=== PATIENT | male | born 1955 | race Caucasian/White ===

== ENCOUNTER → 2020-09-17 | Day surgery (SDC) | payer OTHER ==
[2020-09-16 11:55] VITALS: BMI 33.3
[~2020-09-17] MED LIST: LACTATED RINGERS 1,000 ML IV SCH; MIDAZOLAM 2 MG/2 ML VIAL ONE; PROPOFOL 10 MG/ML 20 ML VIAL IV ONE; fentaNYL (PF) 50 MCG/ML 2 ML AMP ONE
[2020-09-17 09:29] VITALS: TEMP 97.9
--- NOTE | 2020-09-17 09:55 | P.GSHP ---
History of Present Illness H&P Date: 09/17/20 Chief Complaint: Screening colonoscopy This a 64-year-old male been sick for screening colonoscopy. Patient denies any significant GI complaints. Past Medical History Past Medical History: Hyperlipidemia, Hypertension Additional Past Medical History / Comment(s): + COLOGARD TEST History of Any Multi-Drug Resistant Organisms: None Reported Past Surgical History: Adenoidectomy, Hernia Repair, Tonsillectomy Past Anesthesia/Blood Transfusion Reactions: No Reported Reaction Smoking Status: Never smoker - Past Family History Mother Family Medical History: Cancer Medications and Allergies Home Medications Medication Instructions Recorded Confirmed Type Atorvastatin [Lipitor] 20 mg PO DAILY 09/16/20 09/17/20 History Enalapril [Vasotec] 20 mg PO DAILY 09/16/20 09/16/20 History amLODIPine [Norvasc] 10 mg PO DAILY 09/16/20 09/16/20 History Allergies Allergy/AdvReac Type Severity Reaction Status Date / Time No Known Allergies Allergy Verified 09/17/20 09:28 Surgical - Exam Vital Signs Temp Pulse Resp BP Pulse Ox 97.9 F 75 17 145/83 98 09/17/20 09:28 09/17/20 09:28 09/17/20 09:28 09/17/20 09:28 09/17/20 09:28 - General well developed, well nourished, no distress - Eyes PERRL - ENT normal pinna - Neck no masses, no bruits - Respiratory normal expansion - Cardiovascular Rhythm: regular - Abdomen Abdomen: soft, non tender Assessment and Plan Assessment: We'll perform screening colonoscopy.
--- NOTE | 2020-09-17 10:05 | P.OP ---
Date of Procedure: 09/17/20 Preoperative Diagnosis: Screening colonoscopy Postoperative Diagnosis: Normal colon Procedure(s) Performed: Colonoscopy Anesthesia: MAC Surgeon: Eber Domínguez Pathology: none sent Condition: stable Disposition: PACU Description of Procedure: PROCEDURE: The patient was placed on the endoscopy table in the lateral position. Digital rectal examination was performed which revealed no abnormalities. The prostate was symmetrical without nodules. Flexible colonoscope was then placed in the patient's anus and passed throughout the entire colon. The ileocecal valve was visualized. The cecum, ascending, transverse, descending and sigmoid colon were normal. The rectum was normal as well. There were no masses, polyps or diverticula noted in the entire colon. SUMMARY OF FINDINGS: Normal colonoscopy.
[2020-09-17 10:09] VITALS: PULSE 73; RESP 16
[2020-09-17 11:02] VITALS: BP 101/50
== END | disposition home or self-care (01) ==
LOC: ORWHC2ENDO 08:33
PROVIDERS: ATTEND Surgery
DX: Z12.11 Encounter for screening for malignant neoplasm of colon (principal); E78.5 Hyperlipidemia, unspecified; I10 Essential (primary) hypertension; Z90.89 Acquired absence of other organs; Z98.890 Other specified postprocedural states; Z87.19 Personal history of other diseases of the digestive system; Z79.899 Other long term (current) drug therapy; Z80.9 Family history of malignant neoplasm, unspecified
CPT/HCPCS: J2250; J3010; J2704; G0121; 45378

== ENCOUNTER 2020-11-30 14:28 | Emergency (ER) | payer OTHER ==
[2020-11-30 14:43] VITALS: BP 112/69; PULSE 114; RESP 18; TEMP 98.3
[2020-11-30] MEDS ORDERED: BACITRACIN OINT 1 EACH PACKET TOPICAL ONE (15:26)
--- NOTE | 2020-11-30 15:31 | ED ---
Fall HPI - General Chief Complaint: Fall Stated Complaint: Fall, fac lac Time Seen by Provider: 11/30/20 14:56 Source: patient Mode of arrival: wheelchair - History of Present Illness Initial Comments: Patient is a 65-year-old male presenting to the emergency department after he fell at work today. He states about an hour prior to arrival he tripped on a machine at work and fell forward hitting his chin on the ground. Patient denies loss of consciousness, he denies having headache, no blurry vision, no nausea or vomiting. He denies pain anywhere except for his chin. He does have a small cut to his bottom lip. He denies being on blood thinners. He has no further complaints at this time. - Related Data Home Medications Medication Instructions Recorded Confirmed Atorvastatin [Lipitor] 20 mg PO DAILY 09/16/20 09/17/20 Enalapril [Vasotec] 20 mg PO DAILY 09/16/20 09/16/20 amLODIPine [Norvasc] 10 mg PO DAILY 09/16/20 09/16/20 Allergies Allergy/AdvReac Type Severity Reaction Status Date / Time No Known Allergies Allergy Verified 11/30/20 14:39 Review of Systems ROS Statement: Those systems with pertinent positive or pertinent negative responses have been documented in the HPI. ROS Other: All systems not noted in ROS Statement are negative. Past Medical History Past Medical History: Hyperlipidemia, Hypertension Additional Past Medical History / Comment(s): + COLOGARD TEST History of Any Multi-Drug Resistant Organisms: None Reported Past Surgical History: Adenoidectomy, Hernia Repair, Tonsillectomy Past Anesthesia/Blood Transfusion Reactions: No Reported Reaction Past Psychological History: No Psychological Hx Reported Smoking Status: Never smoker Past Alcohol Use History: None Reported Past Drug Use History: None Reported - Past Family History Mother Family Medical History: Cancer General Exam - General Exam Comments Initial Comments: GENERAL: Patient is well-developed and well-nourished. Patient is nontoxic and in no acute distress. HEAD: Atraumatic, normocephalic. No hematoma, no signs of basilar skull fracture. EYES: Pupils equal round and reactive to light, extraocular movements intact, sclera anicteric, conjunctiva are normal. Eyelids were unremarkable. ENT: TMs normal, nares patent, oropharynx clear without exudates. Moist mucous membranes. He has full range of motion of his jaw, no pain with motion. NECK: Normal range of motion, supple without lymphadenopathy or JVD. LUNGS: Unlabored respirations. Breath sounds clear to auscultation bilaterally and equal. No wheezes rales or rhonchi. HEART: Regular rate and rhythm without murmurs, rubs or gallops. ABDOMEN: Soft, nontender, normoactive bowel sounds. No guarding, no rebound. No masses appreciated. : Deferred MUSCULOSKELETAL: Normal extremities with adequate strength and normal range of motion, no pitting or edema. No clubbing or cyanosis. NEUROLOGICAL: Patient is alert and oriented x 3. Motor and sensory are also intact. Cranial nerves II through XII grossly intact. Symmetrical smile. Normal speech, normal gait. PSYCH: Normal mood, normal affect. SKIN: Warm, Dry, normal turgor, no rashes. Patient has mild superficial lacerations to his bottom lip from the teeth, no through and through. There is no active bleeding at this time. Limitations: no limitations Course Vital Signs 11/30/20 14:39 Temperature 98.3 F Pulse Rate 114 H Respiratory 18 Rate Blood Pressure 112/69 O2 Sat by Pulse 95 Oximetry Medical Decision Making - Medical Decision Making Patient is a 65-year-old male here after he fell at work about an hour prior to arrival hitting his chin on the ground causing superficial lacerations to his bottom lip. There is no active bleeding. Patient did not lose consciousness, his exam is otherwise unremarkable. No other complaints at this time. He is not on blood thinners. I discussed with patient that his lip does not require any sutures or glue. He can use topical antibiotic twice a day for the next few days. He is stable for discharge. He can follow up with his regular doctor. He is in agreement with this plan of care. Disposition Clinical Impression: Fall, Abrasion of skin of lip, Contusion, lip Disposition: HOME SELF-CARE Condition: Stable Instructions (If sedation given, give patient instructions): Abrasion (ED) Additional Instructions: Please return to the Emergency Department if symptoms worsen or any other concerns. Apply topical antibiotic twice daily for the next week. Apply ice to the area as well for any swelling or pain. Follow-up with your regular doctor. Is patient prescribed a controlled substance at d/c from ED?: No Referrals: Rena Liz DO [Primary Care Provider] - 1-2 days
== END 2020-11-30 15:44 | disposition home or self-care (01) ==
LOC: EC 14:28
DX: S01.511A Laceration without foreign body of lip, initial encounter (principal); E78.5 Hyperlipidemia, unspecified; I10 Essential (primary) hypertension; Z79.899 Other long term (current) drug therapy; W01.0XXA Fall on same level from slipping, tripping and stumbling without subsequent striking against object, initial encounter; Y99.0 Civilian activity done for income or pay; Y92.69 Other specified industrial and construction area as the place of occurrence of the external cause
CPT/HCPCS: 99283

== ENCOUNTER → 2023-03-03 | Outpatient (CLI) | payer OTHER ==
--- NOTE | 2023-03-03 12:32 | MR ---
EXAMINATION TYPE: MR lumbar spine wo con DATE OF EXAM: 03/03/2023 COMPARISON: NONE HISTORY: Hyperreflexia of lower extremities, pain per order. TECHNIQUE: Multiplanar, multisequence imaging of the lumbar spine is performed without IV contrast. FINDINGS: Sagittal images of the lumbar spine show vertebral body heights to appear satisfactory. The re is grade 1 retrolisthesis L4 on L5 and L5 on S1. There is multilevel disc desiccation. There is mo derate to advanced disc space narrowing with vacuum disc phenomenon at L4-L5 and L5-S1 levels. The co nus medullaris is normal in position and signal ending at mid L1 level. The bone marrow signal inten sity is within normal limits. Axial images show T12-L1 and L1-L2 levels to appear within normal limits. Axial images at L2-L3 level shows mild broad-based disc bulge minimally effacing anterior thecal sac. Patent bilateral neural foramina. Axial images L3-L4 level show mild broad disc bulge with tiny central disc protrusion mildly effacing the anterior thecal sac and mild to moderate facet arthropathy and ligamentum flavum hypertrophy. Mi ld bilateral neural foraminal narrowing is seen. Axial images at L4-L5 levels with spondylolisthesis with moderate broad disc bulging and small left p aracentral disc extrusion extending superiorly sagittal image 9. There is effacement of the anterior and posterior lateral thecal sac on axial image 10. There is moderate right and moderate to severe le ft-sided neural foraminal narrowing with likely some left L4 effacement sagittal image 6. Axial images at L5-S1 level show mild/moderate facet arthropathy bilaterally. There is spondylolisthe sis with broad-based posterior disc protrusion. There is mild right and more moderate to severe right -sided neural foraminal narrowing due to foraminal and lateral disc protrusion component encroaching along inferior margin of the right L5 nerve sagittal image 13. The paraspinal muscle bulk is maintained. IMPRESSION: Multilevel spondylolisthesis and degenerative change in the mid to lower lumbar spine as detailed above.
== END | disposition home or self-care (01) ==
LOC: RADMRIMAIN 11:23
PROVIDERS: ATTEND Psychiatry & Neurology Neurology
DX: M43.16 Spondylolisthesis, lumbar region (principal); M47.816 Spondylosis without myelopathy or radiculopathy, lumbar region; R29.2 Abnormal reflex
CPT/HCPCS: 72148

== ENCOUNTER → 2023-10-31 | Outpatient (CLI) | payer OTHER ==
--- NOTE | 2023-10-31 16:26 | MR ---
MRI brain without contrast HISTORY: Leg weakness and Parkinson's disease, rule out CVA. COMPARISON: None. TECHNIQUE: Multiecho multiplanar images the brain were obtained without contrast. The T1-weighted sagittal images midline structures including the cranial vertebral junction relations hips appear normal. The ventricles, basal cisterns and sulci over convexities are markedly enlarged consistent with marke d atrophy. There are multifocal areas of abnormal increased signal intensity in the white matter both cerebral h emispheres consistent with chronic ischemic white matter change. Based on diffusion-weighted imaging, there is no diffusion restriction or acute ischemic event. The posterior fossa including the brainstem, fourth ventricle and cerebellar pontine angles appear gr ossly normal. Intraorbital contents appear normal and symmetric. Visualized paranasal sinuses mastoid air cells are well aerated. IMPRESSION: 1. No acute ischemic event. 2. Marked atrophy. 3. Moderate chronic ischemic white matter change.
== END | disposition home or self-care (01) ==
LOC: RADMRIMAIN 13:48
PROVIDERS: ATTEND Psychiatry & Neurology Neurology
DX: I67.82 Cerebral ischemia (principal); G20.A1 Parkinson's disease without dyskinesia, without mention of fluctuations; R29.898 Other symptoms and signs involving the musculoskeletal system; R90.82 White matter disease, unspecified; G31.9 Degenerative disease of nervous system, unspecified
CPT/HCPCS: 70551